=== PATIENT | female | born 1980 | race Caucasian/White ===

== ENCOUNTER 2017-03-12 09:19 | Emergency (ER) | payer MEDICAID ==
[~2017-03-12] VITALS: Ht 154.9 cm; Wt 54.4 kg
[2017-03-12 09:19] VITALS: BP 101/56
--- NOTE | 2017-03-12 09:19 | NUR ---
C/O SEVERE LOWER ABD PAIN X LAST NIGHT AFTER TAKING MONISTAT. NAD NOTED. PT AAO X4, AMBULATORY WITH STEADY GAIT. VSS. RR EVEN AND UNLABORED. MD AT BEDSIDE.
--- NOTE | 2017-03-12 09:42 | NUR ---
urine obtained sent to lab
[2017-03-12 09:54] LABS: BASOPHILS # (AUTO) 0.1 /CMM (0.0-0.2); BASOPHILS % (AUTO) 0.7 % (0.0-2.0); EOSINOPHILS % (AUTO) 0.5 % (0.0-6.0); HEMATOCRIT 39 % (33-45); HEMOGLOBIN 13.2 g/dL (11.5-14.8); LYMPHOCYTES # (AUTO) 2.3 /CMM (0.8-4.8); LYMPHOCYTES % (AUTO) 28.3 % (20.0-44.0); MEAN CORPUSCULAR HEMOGLOBIN 29 PG (26.0-33.0); MEAN CORPUSCULAR HGB CONC 34 g/dl (31.0-36.0); MEAN CORPUSCULAR VOLUME 86 fL (82-100); MONOCYTES # (AUTO) 0.4 /CMM (0.1-1.30); MONOCYTES % (AUTO) 5.2 % (2.0-12.0); NEUTROPHILS # (AUTO) 5.4 /CMM (1.8-8.9); NEUTROPHILS % (AUTO) 65.3 % (43.0-81.0); PLATELET COUNT (AUTO) 221 /CMM (150-450); RDW COEFFICIENT OF VARIATION 12.1 (11.5-15.0); RED BLOOD CELL COUNT(AUTO) 4.59 MIL/uL (4.0-5.2); WHITE BLOOD COUNT (AUTO) 8.2 K/uL (4.3-11.0)
[2017-03-12 09:55] LABS: APPEARANCE,URINE Clear (CLEAR); BILIRUBIN,URINE Negative (NEGATIVE); BLOOD, URINE Moderate Ery/uL (NEGATIVE); COLOR,URINE Yellow (YELLOW); KETONES,URINE Negative (NEGATIVE); LEUKOCYTE ESTERASE ,URINE Moderate (NEGATIVE); NITRITE, URINE Positive (NEGATIVE); PH,URINE 6.5 (5.0-8.0); PROTEIN,URINE Negative (NEGATIVE); UGLUCOSE Negative (NEGATIVE); UROBILINOGEN,URINE 0.2 EU/dL (0.2)
[2017-03-12 10:02] LABS: BACTERIA,URINE Rare /HPF (None Seen); RBC,URINE 0-3 /HPF (0-2); SQUAMOUS EPITHELIAL CELL,UR Few /HPF (None Seen); WBC,URINE 50-80 /HPF (0-3)
[2017-03-12 10:04] LABS: CALCIUM, SERUM 8.8 mg/dL (8.5-10.1); CREATININE 0.7 mg/dL (0.6-1.3); POTASSIUM 3.6 mmol/L (3.5-5.1)
[2017-03-12 10:09] LABS: ALBUMIN 3.9 g/dL (3.4-5.0); BILIRUBIN,DIRECT 0.2 mg/dL (0.0-0.2); BILIRUBIN,TOTAL 0.6 mg/dL (0.2-1.0); TOTAL PROTEIN, SERUM 7.2 g/dL (6.4-8.2)
== END 2017-03-12 10:54 | disposition home or self-care (01) ==
LOC: ER 09:23
DX: N39.0 Urinary tract infection, site not specified (principal)
CPT/HCPCS: 36415; 80048; 80076; 81001; 83690; 84703; 85025; 87077; 87086; 87186; 99284; A4606 ×2; Z7610 ×2; 81000-TC

== ENCOUNTER 2017-03-22 20:06 | Emergency (ER) | payer MEDICAID ==
[~2017-03-22] VITALS: Ht 154.9 cm; Wt 57.2 kg
--- NOTE | 2017-03-22 20:15 | NUR ---
TO BED 1 A 36 YO FEMALE PATIENT BB FAMILY; "PAIN WITH URINATION X 10 DAY." NAD NOTED. VSS. AFEBRILE. COMFORT MEASURES RENDERED.
[2017-03-22] MEDS ORDERED: NITROFURANTOIN/NITROFURAN MAC 100 MG CAPSULE ONE (20:28)
[2017-03-22] MEDS ORDERED: NITROFURANTOIN/NITROFURAN MAC 100 MG CAPSULE PO ONE (20:30)
[2017-03-22 20:44] LABS: APPEARANCE,URINE Slightly Cloudy (CLEAR); BILIRUBIN,URINE Negative (NEGATIVE); BLOOD, URINE Large Ery/uL (NEGATIVE); COLOR,URINE Yellow (YELLOW); KETONES,URINE Negative (NEGATIVE); LEUKOCYTE ESTERASE ,URINE Small (NEGATIVE); NITRITE, URINE Negative (NEGATIVE); PROTEIN,URINE 100 mg/dl (NEGATIVE); UGLUCOSE Negative (NEGATIVE); UROBILINOGEN,URINE 0.2 EU/dL (0.2)
[2017-03-22 21:14] LABS: BACTERIA,URINE Few /HPF (None Seen); SQUAMOUS EPITHELIAL CELL,UR Few /HPF (None Seen)
[2017-03-22 21:15] LABS: CALCIUM OXALATE CRYSTALS,UR Few /HPF (None Seen)
[2017-03-22 21:16] VITALS: BP 125/70
== END 2017-03-22 21:33 | disposition home or self-care (01) ==
LOC: ER 20:07
DX: N39.0 Urinary tract infection, site not specified (principal); Z16.12 Extended spectrum beta lactamase (ESBL) resistance; Z16.39 Resistance to other specified antimicrobial drug; B96.89 Other specified bacterial agents as the cause of diseases classified elsewhere
CPT/HCPCS: 81001; 84703; 87077; 87086; 87186; 99284; A4606; Z7610; 81000-TC

== ENCOUNTER → 2017-03-31 | Emergency (ER) | payer MEDICAID ==
[~2017-03-31] VITALS: Ht 154.9 cm; Wt 59.0 kg
[~2017-03-31] MED LIST: IV NS 0.9% 1,000 ML BAG IV ONE; KETOROLAC TROMETHAMINE INJ 30 MG/ML VIAL IV ONE; KETOROLAC TROMETHAMINE INJ 30 MG/ML VIAL ONE; ONDANSETRON HCL/PF 4 MG/2 ML VIAL IVP ONE; ONDANSETRON HCL/PF 4 MG/2 ML VIAL ONE
--- NOTE | 2017-03-31 09:10 | NUR ---
PRESENTS TO ER C/O DIARRHEA X FRIDAY, HEADACHES, BODY ACHES, NAUSEA. PATIENT IS A/OX 4. BREATHING EVEN AND UNLABORED. NO SOB. VITALS STABLE. SAFETY AND COMFORT MEASURES IN PLACE. AWAITING MD ORDERS.
[2017-03-31 09:43] LABS: BASOPHILS % (AUTO) 0.5 % (0.0-2.0); EOSINOPHILS % (AUTO) 0.2 % (0.0-6.0); HEMATOCRIT 38 % (33-45); HEMOGLOBIN 12.6 g/dL (11.5-14.8); LYMPHOCYTES % (AUTO) 21.3 % (20.0-44.0); MEAN CORPUSCULAR HEMOGLOBIN 29 PG (26.0-33.0); MEAN CORPUSCULAR HGB CONC 34 g/dl (31.0-36.0); MEAN CORPUSCULAR VOLUME 87 fL (82-100); MONOCYTES # (AUTO) 0.6 /CMM (0.1-1.30); MONOCYTES % (AUTO) 12.6 % (2.0-12.0); NEUTROPHILS # (AUTO) 3.1 /CMM (1.8-8.9); NEUTROPHILS % (AUTO) 65.4 % (43.0-81.0); PLATELET COUNT (AUTO) 183 /CMM (150-450); RDW COEFFICIENT OF VARIATION 12.6 (11.5-15.0); RED BLOOD CELL COUNT(AUTO) 4.32 MIL/uL (4.0-5.2); WHITE BLOOD COUNT (AUTO) 4.7 K/uL (4.3-11.0)
--- NOTE | 2017-03-31 09:45 | NUR ---
NEW IV STARTED ON RAC, 20 G. BLOOD DRAWN AND SENT TO LAB. PATIENT MEDICATED PER MD ORDERS.
[2017-03-31 09:58] LABS: CALCIUM, SERUM 9.1 mg/dL (8.5-10.1); CREATININE 0.8 mg/dL (0.6-1.3); POTASSIUM 3.9 mmol/L (3.5-5.1)
[2017-03-31 10:04] LABS: BILIRUBIN,DIRECT 0.1 mg/dL (0.0-0.2); BILIRUBIN,TOTAL 0.3 mg/dL (0.2-1.0); TOTAL PROTEIN, SERUM 7.4 g/dL (6.4-8.2)
[2017-03-31 10:04] LABS: BILIRUBIN,URINE Negative (NEGATIVE); BLOOD, URINE Trace-intact Ery/uL (NEGATIVE); COLOR,URINE Yellow (YELLOW); KETONES,URINE Negative (NEGATIVE); LEUKOCYTE ESTERASE ,URINE Negative (NEGATIVE); NITRITE, URINE Negative (NEGATIVE); PH,URINE 7.5 (5.0-8.0); PROTEIN,URINE Trace mg/dl (NEGATIVE); UGLUCOSE Negative (NEGATIVE); UROBILINOGEN,URINE 0.2 EU/dL (0.2)
[2017-03-31 10:09] LABS: APPEARANCE,URINE Hazy (CLEAR)
[2017-03-31 10:15] LABS: SQUAMOUS EPITHELIAL CELL,UR Moderate /HPF (None Seen)
[2017-03-31 10:16] LABS: BACTERIA,URINE Rare /HPF (None Seen)
[2017-03-31 11:19] VITALS: BP 105/71
--- NOTE | 2017-03-31 11:21 | NUR ---
IV removed. Catheter intact and site benign. Pressure and 4x4 applied to site. No bleeding noted. Patient discharged to home in stable condition. Written and verbal after care instructions given. Patient verbalizes understanding of instruction.
== END | disposition home or self-care (01) ==
LOC: ER 09:10
DX: B34.9 Viral infection, unspecified (principal)
CPT/HCPCS: 36415; 80048; 80076; 81001; 83690; 84703; 85025; 96361; 96374; 96375; 99284; A4606; J1885; J2405; J7030; Z7610; 81000-TC

== ENCOUNTER 2017-10-27 13:14 | Emergency (ER) | payer MEDICAID ==
[~2017-10-27] VITALS: Ht 154.9 cm; Wt 52.6 kg
--- NOTE | 2017-10-27 13:20 | NUR ---
intermittent Lower abdominal pain, radiating to upper abdomen x 1 month
--- NOTE | 2017-10-27 13:32 | NUR ---
urine sample sent to lab
[2017-10-27 13:47] LABS: BASOPHILS # (AUTO) 0.1 /CMM (0.0-0.2); EOSINOPHILS % (AUTO) 1.4 % (0.0-6.0); HEMATOCRIT 38 % (33-45); LYMPHOCYTES # (AUTO) 2.9 /CMM (0.8-4.8); LYMPHOCYTES % (AUTO) 37.9 % (20.0-44.0); MEAN CORPUSCULAR HGB CONC 34 g/dl (31.0-36.0); MEAN CORPUSCULAR VOLUME 86 fL (82-100); MONOCYTES # (AUTO) 0.5 /CMM (0.1-1.30); MONOCYTES % (AUTO) 6.2 % (2.0-12.0); NEUTROPHILS # (AUTO) 4.1 /CMM (1.8-8.9); NEUTROPHILS % (AUTO) 53.5 % (43.0-81.0); PLATELET COUNT (AUTO) 245 /CMM (150-450); RDW COEFFICIENT OF VARIATION 12.4 (11.5-15.0); RED BLOOD CELL COUNT(AUTO) 4.43 MIL/uL (4.0-5.2); WHITE BLOOD COUNT (AUTO) 7.7 K/uL (4.3-11.0)
[2017-10-27 13:57] LABS: CALCIUM, SERUM 9.3 mg/dL (8.5-10.1); CREATININE 0.5 mg/dL (0.6-1.3); POTASSIUM 4.3 mmol/L (3.5-5.1)
[2017-10-27 14:02] LABS: ALBUMIN 3.9 g/dL (3.4-5.0); BILIRUBIN,DIRECT 0.1 mg/dL (0.0-0.2); BILIRUBIN,TOTAL 0.3 mg/dL (0.2-1.0); TOTAL PROTEIN, SERUM 7.4 g/dL (6.4-8.2)
[2017-10-27 14:03] LABS: APPEARANCE,URINE Clear (CLEAR); BILIRUBIN,URINE Negative (NEGATIVE); BLOOD, URINE Small Ery/uL (NEGATIVE); COLOR,URINE Light yellow (YELLOW); KETONES,URINE Negative (NEGATIVE); LEUKOCYTE ESTERASE ,URINE Negative (NEGATIVE); NITRITE, URINE Negative (NEGATIVE); PH,URINE 6.5 (5.0-8.0); PROTEIN,URINE Negative (NEGATIVE); UGLUCOSE Negative (NEGATIVE); UROBILINOGEN,URINE 0.2 EU/dL (0.2)
[2017-10-27 14:11] LABS: BACTERIA,URINE Rare /HPF (None Seen); SQUAMOUS EPITHELIAL CELL,UR Few /HPF (None Seen)
--- NOTE | 2017-10-27 15:37 | NUR ---
MARITZA ROSA AT
[2017-10-27 16:07] VITALS: BP 121/72
== END 2017-10-27 16:08 | disposition home or self-care (01) ==
LOC: ER 13:17
DX: R10.13 Epigastric pain (principal); R10.2 Pelvic and perineal pain
CPT/HCPCS: 36415; 76700-TC; 76856-TC; 80048-TC; 80076-TC; 81000-TC; 83690-TC; 84703-TC; 85025-TC; A4606; Z7610

== ENCOUNTER 2017-12-26 15:40 | Emergency (ER) | payer MEDICAID ==
[~2017-12-26] VITALS: Ht 165.1 cm; Wt 51.7 kg
[2017-12-26 15:40] VITALS: BP 100/76
== END 2017-12-26 16:11 | disposition home or self-care (01) ==
LOC: ER 15:42
DX: S90.511A Abrasion, right ankle, initial encounter (principal); S90.512A Abrasion, left ankle, initial encounter; L03.116 Cellulitis of left lower limb; L03.115 Cellulitis of right lower limb; Y29.XXXA Contact with blunt object, undetermined intent, initial encounter; Y93.11 Activity, swimming; Y92.34 Swimming pool (public) as the place of occurrence of the external cause; Y99.8 Other external cause status
CPT/HCPCS: 99283; A4606; Z7610

== ENCOUNTER 2018-01-31 21:42 | Emergency (ER) | payer MEDICAID ==
[~2018-01-31] VITALS: Ht 154.9 cm; Wt 49.9 kg
--- NOTE | 2018-01-31 21:50 | NUR ---
PT AMBULATORY TO ER BED 09 C/O POST EXERCISE NECK PAIN AND CRAMPING R/T R SHOULDER AND ARM. PT STATES TOOK TYLENOL TODAY W/ NO RELIEF. DENIES BLUNT TRAUMA OR ANY LOAD BEARING LIFTING. 02/25 PAIN. STABLE VITALS. AWAITING MD OSORIO.
--- NOTE | 2018-01-31 22:41 | NUR ---
DR LEVY AT BEDSIDE FOR EVAL.
[2018-01-31] MEDS ORDERED: DIAZEPAM 5 MG TABLET ONE (22:43)
[2018-01-31] MEDS ORDERED: HYDROCODONE/APAP 5/325MG 1 EACH TABLET ONE (22:43)
--- NOTE | 2018-01-31 22:52 | NUR ---
Patient discharged to home in stable condition. Written and verbal after care instructions given. Patient verbalizes understanding of instruction.
[2018-01-31 22:53] VITALS: BP 112/56
[2018-01-31] MEDS ORDERED: DIAZEPAM 5 MG TABLET PO ONE (23:00)
[2018-01-31] MEDS ORDERED: HYDROCODONE/APAP 5/325MG 1 EACH TABLET PO ONE (23:00)
== END 2018-01-31 22:55 | disposition home or self-care (01) ==
LOC: ER 21:42
DX: S16.1XXA Strain of muscle, fascia and tendon at neck level, initial encounter (principal); X50.9XXA Other and unspecified overexertion or strenuous movements or postures, initial encounter; Y93.B9 Activity, other involving muscle strengthening exercises; Y92.89 Other specified places as the place of occurrence of the external cause; Y99.8 Other external cause status
CPT/HCPCS: 99283; A4606; Z7610

== ENCOUNTER 2019-01-11 17:02 | Emergency (ER) | payer MEDICAID ==
[~2019-01-11] VITALS: Ht 154.9 cm; Wt 54.4 kg
[2019-01-11 17:13] VITALS: BP 113/67
== END 2019-01-11 17:52 | disposition home or self-care (01) ==
LOC: ER 17:02
DX: S80.862A Insect bite (nonvenomous), left lower leg, initial encounter (principal); S80.861A Insect bite (nonvenomous), right lower leg, initial encounter; S40.861A Insect bite (nonvenomous) of right upper arm, initial encounter; W57.XXXA Bitten or stung by nonvenomous insect and other nonvenomous arthropods, initial encounter; Y93.89 Activity, other specified; Y92.89 Other specified places as the place of occurrence of the external cause; Y99.8 Other external cause status

== ENCOUNTER 2019-02-16 20:18 | Emergency (ER) | payer MEDICAID ==
[~2019-02-16] VITALS: Ht 154.9 cm; Wt 59.0 kg
--- NOTE | 2019-02-16 20:35 | NUR ---
to bed 16 ambulatory c/o worsening yellowish colored vaginal discharge �10 days. pt aaox4 no acute distress noted, resp even and unlabored. pending er md espinoza.
[2019-02-16 20:54] LABS: APPEARANCE,URINE Clear (CLEAR); BILIRUBIN,URINE Negative (NEGATIVE); BLOOD, URINE Negative Ery/uL (NEGATIVE); COLOR,URINE Yellow (YELLOW); KETONES,URINE Negative (NEGATIVE); LEUKOCYTE ESTERASE ,URINE Negative (NEGATIVE); NITRITE, URINE Negative (NEGATIVE); PROTEIN,URINE Negative (NEGATIVE); UGLUCOSE Negative (NEGATIVE); UROBILINOGEN,URINE 0.2 EU/dL (0.2)
--- NOTE | 2019-02-16 21:14 | NUR ---
CALLED FOR US
--- NOTE | 2019-02-16 22:40 | NUR ---
Patient discharged to home in stable condition. Written and verbal after care instructions given. Patient verbalizes understanding of instruction.
[2019-02-16 22:41] VITALS: BP 116/62
== END 2019-02-16 22:42 | disposition home or self-care (01) ==
LOC: ER 20:20
DX: N76.0 Acute vaginitis (principal)
CPT/HCPCS: 76856; 81001; 84703; 87086; 87210; 87491; 87591; 99284; A6403; 81000-TC

== ENCOUNTER 2020-02-06 20:50 | Emergency (ER) | payer MEDICAID ==
[~2020-02-06] VITALS: Ht 154.9 cm; Wt 59.0 kg
--- NOTE | 2020-02-06 21:19 | NUR ---
PATIENT CAME TO ER BED 11 C/O NONRADIATING 12/26 MIDSTERNAL CHEST PAIN SINCE THE MORNING OF TODAY, PATIENT IS UNSURE WHAT TIME OF THE DAY. PATIENT STATES THAT SHE HAS BEEN HAVING DRY COUGH. NO FEVER. PATIENT C/O CHEST TIGHTNESS. A/Ox4. NO SOB. BREATHING EVENLY AND UNLABORED ON ROOM AIR. DENIES TAKING ANY MEDICATION FOR PAIN, NOR ANY TRAUMA TO THE CHEST. CONNECTED TO THE MONITOR.
[2020-02-06 21:20] LABS: BASOPHILS % (AUTO) 0.4 % (0.0-2.0); EOSINOPHILS % (AUTO) 1.4 % (0.0-6.0); HEMATOCRIT 40 % (33-45); HEMOGLOBIN 13.5 g/dL (11.5-14.8); LYMPHOCYTES # (AUTO) 3.2 /CMM (0.8-4.8); LYMPHOCYTES % (AUTO) 34.6 % (20.0-44.0); MEAN CORPUSCULAR HGB CONC 34 g/dl (31.0-36.0); MEAN CORPUSCULAR VOLUME 89 fL (82-100); MONOCYTES # (AUTO) 0.7 /CMM (0.1-1.30); MONOCYTES % (AUTO) 7.6 % (2.0-12.0); NEUTROPHILS # (AUTO) 5.3 /CMM (1.8-8.9); PLATELET COUNT (AUTO) 232 /CMM (150-450); RED BLOOD CELL COUNT(AUTO) 4.53 MIL/uL (4.0-5.2); WHITE BLOOD COUNT (AUTO) 9.4 K/uL (4.3-11.0)
--- NOTE | 2020-02-06 21:20 | NUR ---
BLOOD DRAWN AND SENT TO LAB.
[2020-02-06 21:28] LABS: CARBON DIOXIDE 28 mmol/L (21-32); CHLORIDE 104 mmol/L (98-107); CREATININE 0.7 mg/dL (0.6-1.3); GLUCOSE 85 mg/dL (74-106); POTASSIUM 3.5 mmol/L (3.5-5.1); SODIUM SERUM 142 mmol/L (136-145); UREA NITROGEN, BLOOD 17 mg/dL (7-18)
--- NOTE | 2020-02-06 22:04 | NUR ---
covid swab collected and sent to the lab.
[2020-02-06 22:20] VITALS: BP 132/74
--- NOTE | 2020-02-06 22:20 | NUR ---
Patient discharged to home in stable condition. Written and verbal after care instructions given. Patient verbalizes understanding of instruction.
--- NOTE | 2020-02-06 22:20 | NUR ---
IV removed. Catheter intact and site benign. Pressure and 4x4 applied to site. No bleeding noted.
--- NOTE | 2020-02-06 22:22 | NUR ---
prescriptions provided to patient and explained.
--- NOTE | 2020-02-08 04:58 | NUR ---
LAB CALLED REGARDING NEGATIVE COVID RESULT.
== END 2020-02-06 22:27 | disposition home or self-care (01) ==
LOC: ER 20:52
DX: R07.9 Chest pain, unspecified (principal); R05 Cough; Z20.828 Contact with and (suspected) exposure to other viral communicable diseases; R94.31 Abnormal electrocardiogram [ECG] [EKG]
CPT/HCPCS: 36415; 71045; 80048; 84484; 85025; 93005; 99285; C9803; U0003

== ENCOUNTER 2020-02-07 08:26 | Emergency (ER) | payer MEDICAID ==
[~2020-02-07] VITALS: Ht 154.9 cm; Wt 62.6 kg
--- NOTE | 2020-02-07 08:26 | NUR ---
PT BIB SELF C/O SOB LAST NIGHT AND NAUSEA. 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 WILL CONTINUE TO MONITOR.
--- NOTE | 2020-02-07 08:40 | NUR ---
SEEN AND EXAMINED BY .
[2020-02-07] MEDS ORDERED: MORPHINE SULFATE INJ 2 MG/ML DISP.SYRIN ONE (08:50)
[2020-02-07] MEDS ORDERED: ONDANSETRON HCL/PF 4 MG/2 ML VIAL ONE (08:50)
--- NOTE | 2020-02-07 08:50 | NUR ---
URINE SPECIMEN COLLECTED AND SENT TO LAB.
[2020-02-07] MEDS ORDERED: MORPHINE SULFATE INJ 2 MG/ML DISP.SYRIN IV ONE (09:00)
[2020-02-07] MEDS ORDERED: ONDANSETRON HCL/PF 4 MG/2 ML VIAL IVP ONE (09:00)
--- NOTE | 2020-02-07 09:00 | NUR ---
TECH AT BEDSIDE FOR US.
--- NOTE | 2020-02-07 09:00 | NUR ---
IV LINE ESTABLISHED.
[2020-02-07 09:18] LABS: BASOPHILS % (AUTO) 0.8 % (0.0-2.0); HEMATOCRIT 39 % (33-45); HEMOGLOBIN 12.8 g/dL (11.5-14.8); LYMPHOCYTES # (AUTO) 1.9 /CMM (0.8-4.8); LYMPHOCYTES % (AUTO) 30.4 % (20.0-44.0); MEAN CORPUSCULAR HGB CONC 33 g/dl (31.0-36.0); MEAN CORPUSCULAR VOLUME 89 fL (82-100); MONOCYTES # (AUTO) 0.5 /CMM (0.1-1.30); MONOCYTES % (AUTO) 8.3 % (2.0-12.0); NEUTROPHILS # (AUTO) 3.8 /CMM (1.8-8.9); NEUTROPHILS % (AUTO) 59.5 % (43.0-81.0); PLATELET COUNT (AUTO) 201 /CMM (150-450); RED BLOOD CELL COUNT(AUTO) 4.38 MIL/uL (4.0-5.2); WHITE BLOOD COUNT (AUTO) 6.3 K/uL (4.3-11.0)
[2020-02-07 09:30] LABS: CALCIUM, SERUM 8.3 mg/dL (8.5-10.1); CARBON DIOXIDE 24 mmol/L (21-32); CHLORIDE 107 mmol/L (98-107); CREATININE 0.6 mg/dL (0.6-1.3); GLUCOSE 99 mg/dL (74-106); POTASSIUM 3.8 mmol/L (3.5-5.1); SODIUM SERUM 141 mmol/L (136-145); UREA NITROGEN, BLOOD 11 mg/dL (7-18)
[2020-02-07 09:35] LABS: ALANINE AMINOTRANSFERASE 13 U/L (12-78); ALBUMIN 3.6 g/dL (3.4-5.0); ALKALINE PHOSPHATASE 45 U/L (46-116); ASPARTATE AMINOTRANSFERASE 11 U/L (15-37); BILIRUBIN,DIRECT 0.1 mg/dL (0.0-0.2); BILIRUBIN,TOTAL 0.3 mg/dL (0.2-1.0); TOTAL PROTEIN, SERUM 6.7 g/dL (6.4-8.2)
[2020-02-07] MEDS ORDERED: IOHEXOL-350 100 ML VIAL IV ONE (09:35)
[2020-02-07] MEDS ORDERED: IV NS 0.9% 250 ML IV ONE (09:36)
[2020-02-07 10:31] VITALS: BP 114/62
== END 2020-02-07 10:32 | disposition home or self-care (01) ==
LOC: ER 08:34
DX: R07.89 Other chest pain (principal); R06.02 Shortness of breath
CPT/HCPCS: 36415; 71045; 71275; 76705; 80048; 80076; 83690; 84484; 84703; 85025; 93005 ×2; 96374; 96375; 99285; J2270; J2405; J7050; Q9967

== ENCOUNTER 2020-11-23 20:19 | Emergency (ER) | payer MEDICAID, OTHER ==
[~2020-11-23] VITALS: Ht 154.9 cm; Wt 63.5 kg
--- NOTE | 2020-11-23 20:52 | NUR ---
PT BIBS C/O SORE THROAT X4 DAYS +BODY PAIN. BREATHING EVEN AND UNLABORED. AO X 4. PT ATTACHED TO MONITOR AND POX. CALL LIGHT WITHIN REACH. PA AT BEDSIDE. WILL CONTINUE TO MONITOR.
[2020-11-23] MEDS ORDERED: ACETAMINOPHEN 325 MG TABLET PO ONE (21:00)
[2020-11-23] MEDS ORDERED: ACETAMINOPHEN ES 500 MG TABLET ONE (21:00)
--- NOTE | 2020-11-23 21:09 | NUR ---
COVID AND STREP SWAB SENT TO LAB
[2020-11-23] MEDS ORDERED: AMOX500C2 PO (21:52)
[2020-11-23] MEDS ORDERED: IBUP-1955 PO (21:52)
[2020-11-23] MEDS ORDERED: DEXAMETHASONE SOD PHOSPHATE 10 MG/ML VIAL ONE (21:55)
[2020-11-23] MEDS ORDERED: DEXAMETHASONE SOD PHOSPHATE 4 MG/ML VIAL IM ONE (22:00)
--- NOTE | 2020-11-23 22:00 | NUR ---
Patient discharged to home in stable condition. Written and verbal after care instructions given. Patient verbalizes understanding of instruction. Pt ambulatory with a steady gait.
[2020-11-23 22:05] VITALS: BP 101/55
== END 2020-11-23 22:00 | disposition home or self-care (01) ==
LOC: ER 20:21
DX: J06.9 Acute upper respiratory infection, unspecified (principal); Z20.822 Contact with and (suspected) exposure to COVID-19
CPT/HCPCS: 71045; 87070; 87426; 87880; 96372; 99285; C9803; J1100; 86403-TC

== ENCOUNTER 2020-12-29 19:04 | Emergency (ER) | payer OTHER ==
[~2020-12-29] VITALS: Ht 154.9 cm; Wt 62.6 kg
[~2020-12-29 19:04] MED LIST changes: +AMOX500C2 PO; +IBUP-1955 PO; -IV NS 0.9% 1,000 ML BAG IV ONE; -KETOROLAC TROMETHAMINE INJ 30 MG/ML VIAL IV ONE; -KETOROLAC TROMETHAMINE INJ 30 MG/ML VIAL ONE; -ONDANSETRON HCL/PF 4 MG/2 ML VIAL IVP ONE; -ONDANSETRON HCL/PF 4 MG/2 ML VIAL ONE
[2020-12-29] MEDS ORDERED: IBUPROFEN 600 MG TABLET ONE (19:44)
[2020-12-29] MEDS ORDERED: ACETAMINOPHEN ES 500 MG TABLET ONE (19:44)
--- NOTE | 2020-12-29 19:45 | NUR ---
ROJAS LIU C/O MIDSTERNAL CHEST PAIN FOR THE PAST MONTH, RATES 10/10 PAIN SINCE LAST NIGHT. PATIENT IS A/O X 4, RR EVEN AND UNLABORED, NO SIGNS OF SOB NOTED AT THIS TIME. CAYDEN CONNECTED TO POULTRY EVISCERATOR AND POX.
[2020-12-29] MEDS ORDERED: IBUPROFEN 600 MG TABLET PO ONE (20:00)
[2020-12-29] MEDS ORDERED: ACETAMINOPHEN ES 500 MG TABLET PO ONE (20:00)
[2020-12-29 20:02] LABS: BASOPHILS # (AUTO) 0.1 K/uL (0.0-0.2); BASOPHILS % (AUTO) 0.9 % (0.0-2.0); EOSINOPHILS % (AUTO) 1.2 % (0.0-6.0); HEMATOCRIT 43 % (33-45); HEMOGLOBIN 14.7 g/dL (11.5-14.8); LYMPHOCYTES # (AUTO) 2.7 K/uL (0.8-4.8); MEAN CORPUSCULAR HGB CONC 34 g/dl (31.0-36.0); MEAN CORPUSCULAR VOLUME 88 fL (82-100); MONOCYTES # (AUTO) 0.6 K/uL (0.1-1.30); MONOCYTES % (AUTO) 7.4 % (2.0-12.0); NEUTROPHILS # (AUTO) 4.2 K/uL (1.8-8.9); NEUTROPHILS % (AUTO) 55.5 % (43.0-81.0); PLATELET COUNT (AUTO) 263 K/uL (150-450); RED BLOOD CELL COUNT(AUTO) 4.92 MIL/uL (4.0-5.2); WHITE BLOOD COUNT (AUTO) 7.6 K/uL (4.3-11.0)
--- NOTE | 2020-12-29 20:05 | NUR ---
RADIOLOGY AT BEDSIDE
[2020-12-29 20:09] LABS: CALCIUM, SERUM 9.2 mg/dL (8.5-10.1); CARBON DIOXIDE 26 mmol/L (21-32); CHLORIDE 103 mmol/L (98-107); CREATININE 0.8 mg/dL (0.6-1.3); GLUCOSE 87 mg/dL (74-106); POTASSIUM 3.7 mmol/L (3.5-5.1); SODIUM SERUM 140 mmol/L (136-145); UREA NITROGEN, BLOOD 13 mg/dL (7-18)
[2020-12-29] MEDS ORDERED: IBUP-1957 PO (20:40)
--- NOTE | 2020-12-29 20:52 | NUR ---
Patient discharged to home in stable condition. Written and verbal after care instructions given. Patient verbalizes understanding of instruction and RX. Pt ambulated out of ED. VSS.
--- NOTE | 2020-12-29 20:52 | NUR ---
IV removed. Catheter intact and site benign. Pressure and 4x4 applied to site. No bleeding noted.
[2020-12-29 21:13] VITALS: BP 124/72
== END 2020-12-29 21:10 | disposition home or self-care (01) ==
LOC: ER 19:07
DX: R07.89 Other chest pain (principal); Z79.899 Other long term (current) drug therapy
CPT/HCPCS: 36415; 71045-TC; 80048-TC; 84484-TC; 85025-TC

== ENCOUNTER 2021-01-18 03:57 | Emergency (ER) | payer OTHER ==
[~2021-01-18] VITALS: Ht 154.9 cm; Wt 63.5 kg
[~2021-01-18 03:57] MED LIST changes: +IBUP-1957 PO
--- NOTE | 2021-01-18 04:15 | NUR ---
PATIENT BIBSELF FOR EPIGASTRIC PAIN THAT STARTED YESTERDAY AT 2PM. PATIENT IS A/O X 4, RR EVEN AND UNALBORED, NO SOB NOTED. PATIENT CONNECTED TO MONITORS.
[2021-01-18] MEDS ORDERED: MAG HYDROX/AL HYDROX/SIMETH 30 ML UDC ONE (04:18)
[2021-01-18] MEDS ORDERED: LIDOCAINE VISCOUS 2% UD 15 ML UDC ONE (04:18)
[2021-01-18] MEDS: LIDOCAINE VISCOUS 2% UD 15 ML UDC MM ONE (04:23)
[2021-01-18] MEDS: MAG HYDROX/AL HYDROX/SIMETH 30 ML UDC PO ONE (04:23)
[2021-01-18] MEDS ORDERED: PANT40TA2 PO (04:42)
[2021-01-18 04:50] VITALS: BP 111/62
--- NOTE | 2021-01-18 04:50 | NUR ---
Patient discharged to home in stable condition. Rx and Written and verbal after care instructions given. Patient verbalizes understanding of instruction.
== END 2021-01-18 04:51 | disposition home or self-care (01) ==
LOC: ER 04:07
DX: K27.9 Peptic ulcer, site unspecified, unspecified as acute or chronic, without hemorrhage or perforation (principal); Z79.899 Other long term (current) drug therapy

== ENCOUNTER 2022-10-28 08:37 | Emergency (ER) | payer OTHER ==
[~2022-10-28] VITALS: Ht 154.9 cm; Wt 63.5 kg
[~2022-10-28 08:37] MED LIST changes: +PANT40TA2 PO
[2022-10-28 08:46] VITALS: BP 99/63
--- NOTE | 2022-10-28 08:48 | NUR ---
RIGHT SIDED NECK PAIN RADIATING TO RUE
--- NOTE | 2022-10-28 08:56 | NUR ---
AT BEDSIDE FOR EVAL
[2022-10-28] MEDS ORDERED: CAPS1ADH5 TP (08:58)
--- NOTE | 2022-10-28 09:21 | NUR ---
Patient discharged to home in stable condition. Written and verbal after care instructions given. Patient verbalizes understanding of instruction.
== END 2022-10-28 09:21 | disposition home or self-care (01) ==
LOC: ER 08:38
DX: O26.899 Other specified pregnancy related conditions, unspecified trimester (principal); M54.9 Dorsalgia, unspecified; M54.12 Radiculopathy, cervical region; Z3A.00 Weeks of gestation of pregnancy not specified

== ENCOUNTER 2023-08-03 16:28 | Emergency (ER) | payer OTHER ==
[~2023-08-03] VITALS: Ht 154.9 cm; Wt 62.1 kg
[~2023-08-03 16:28] MED LIST changes: +CAPS1ADH5 TP
[2023-08-03 16:40] VITALS: TEMP 98.4
[2023-08-03] MEDS ORDERED: MAG HYDROX/AL HYDROX/SIMETH 30 ML UDC ONE (16:59)
[2023-08-03] MEDS ORDERED: FAMOTIDINE (20 MG) 20 MG TABLET ONE (16:59)
[2023-08-03] MEDS: MAG HYDROX/AL HYDROX/SIMETH 30 ML UDC PO ONE (17:00)
[2023-08-03] MEDS: FAMOTIDINE (20 MG) 20 MG TABLET PO ONE (17:00)
[2023-08-03 17:41] LABS: BASOPHILS % (AUTO) 0.2 % (0.0-2.0); EOSINOPHILS # (AUTO) 0.4 K/uL (0.0-0.7); EOSINOPHILS % (AUTO) 4.2 % (0.0-6.0); HEMATOCRIT 40 % (33-45); HEMOGLOBIN 13.5 g/dL (11.5-14.8); LYMPHOCYTES # (AUTO) 2.3 K/uL (0.8-4.8); LYMPHOCYTES % (AUTO) 26.8 % (20.0-44.0); MEAN CORPUSCULAR HEMOGLOBIN 30 PG (26.0-33.0); MEAN CORPUSCULAR HGB CONC 34 g/dl (31.0-36.0); MEAN CORPUSCULAR VOLUME 90 fL (82-100); MONOCYTES # (AUTO) 0.7 K/uL (0.1-1.30); MONOCYTES % (AUTO) 8.2 % (2.0-12.0); NEUTROPHILS # (AUTO) 5.3 K/uL (1.8-8.9); NEUTROPHILS % (AUTO) 60.6 % (43.0-81.0); PLATELET COUNT (AUTO) 280 K/uL (150-450); RED BLOOD CELL COUNT(AUTO) 4.45 MIL/uL (4.0-5.2); RED CELL DISTRIBUTION WIDTH 13.6 % (11.5-15.0); WHITE BLOOD COUNT (AUTO) 8.7 K/uL (4.3-11.0)
[2023-08-03 17:52] LABS: APPEARANCE,URINE SLIGHTLY CLOUDY (CLEAR); BILIRUBIN,URINE NEGATIVE (NEGATIVE); BLOOD, URINE 2+ Ery/uL (NEGATIVE); COLOR,URINE YELLOW (YELLOW); KETONES,URINE NEGATIVE (NEGATIVE); LEUKOCYTE ESTERASE ,URINE 1+ (NEGATIVE); NITRITE, URINE NEGATIVE (NEGATIVE); PH,URINE 5.5 (5.0-8.0); PROTEIN,URINE NEGATIVE (NEGATIVE); UGLUCOSE NEGATIVE (NEGATIVE); UROBILINOGEN,URINE 0.2 EU/dL (0.2)
[2023-08-03 17:57] LABS: PREGNANCY TEST URINE QUAL NEGATIVE (NEGATIVE)
[2023-08-03 17:59] LABS: CALCIUM, SERUM 9.5 mg/dL (8.5-10.1); CARBON DIOXIDE 31 mmol/L (21-32); CHLORIDE 103 mmol/L (98-107); CREATININE 0.6 mg/dL (0.6-1.3); GLUCOSE 101 mg/dL (74-106); POTASSIUM 3.6 mmol/L (3.5-5.1); SODIUM SERUM 141 mmol/L (136-145); UREA NITROGEN, BLOOD 10 mg/dL (7-18)
[2023-08-03 18:00] LABS: ADD URINE CULTURE YES; BACTERIA,URINE 1+ /HPF (None Seen); RBC,URINE 21-50 /HPF (0-2)
[2023-08-03 18:08] LABS: ALANINE AMINOTRANSFERASE 15 U/L (12-78); ALKALINE PHOSPHATASE 59 U/L (46-116); ASPARTATE AMINOTRANSFERASE 14 U/L (15-37); BILIRUBIN,DIRECT 0.1 mg/dL (0.0-0.2); BILIRUBIN,TOTAL 0.5 mg/dL (0.2-1.0); LIPASE > 375 U/L (16-77); TOTAL PROTEIN, SERUM 7.5 g/dL (6.4-8.2)
[2023-08-03] MEDS ORDERED: ONDA4TAB11 PO (19:01)
[2023-08-03] MEDS ORDERED: ACET-2605 PO (19:01)
[2023-08-03] MEDS ORDERED: PANT20TA2 PO (19:01)
[2023-08-03 19:32] VITALS: BP 115/77; O2SAT 100
== END 2023-08-03 19:16 | disposition home or self-care (01) ==
LOC: ER 16:32
DX: K85.90 Acute pancreatitis without necrosis or infection, unspecified (principal); R10.13 Epigastric pain
CPT/HCPCS: 36415; 80048-TC; 80076-TC; 81001; 83690-TC; 84703-TC; 85025-TC; 87086-TC